=== PATIENT | female | born 1995 ===

== ENCOUNTER 2025-01-04 07:47 | Emergency (ER) | payer SELFPAY ==
[2025-01-04 07:49] VITALS: BP 135/92
[2025-01-04] MEDS: VALIUM 5 MG PO (08:45)
[2025-01-04] MEDS: MOTRIN 600 MG PO (08:45)
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
[2025-01-04 09:21] VITALS: BP 128/72
== END 2025-01-04 10:30 | disposition home or self-care (01) ==
LOC: EMR 07:47
PROVIDERS: EMERGENCY PHYSICIAN Emergency Medicine; FAMILY PHYSICIAN Physician Assistant
DX: M54.2 Cervicalgia (principal)
CPT/HCPCS: 99283; 72040